=== PATIENT | female | born 1965 | race Caucasian/White ===

== ENCOUNTER 2017-04-08 09:06 | Emergency (ER) | payer OTHER ==
[2017-04-08 09:54] VITALS: BP 155/91
[2017-04-08] MEDS ORDERED: Albuterol HFA INHALER* 8 gm MDI INH ONE (10:04)
--- NOTE | 2017-04-08 10:05 | UC ---
Respiratory Complaint HPI - HPI Summary HPI Summary: 51 yo female with a one week hx of low grade temp/runny nose and post nasal drip now feeling worse with upper dental pain/sensitivity and wheezing out of MDI - History of Current Complaint Chief Complaint: UCRespiratory Stated Complaint: FLU SXS,ASTHMA Time Seen by Provider: 04/08/17 09:52 Hx Obtained From: Patient Hx Last Menstrual Period: n/a Onset/Duration: Gradual Onset, Lasting Days - 7 Timing: Constant Severity Initially: Mild Severity Currently: Moderate Pain Intensity: 4 Pain Scale Used: 0-10 Numeric Character: Cough: Nonproductive Aggravating Factors: Nothing Alleviating Factors: Nothing Associated Signs And Symptoms: Positive: Wheezing, Nasal Congestion, Hoarseness , Sinus Discomfort Related History: Similar Episode/Dx as: - sinusitis - Allergies/Home Medications Allergies/Adverse Reactions: Allergies Allergy/AdvReac Type Severity Reaction Status Date / Time environmental Allergy Congestion Uncoded 04/08/17 09:55 Home Medications: Home Medications [place] 1 liq PO BEDTIME PRN 04/08/17 [History] Pantoprazole Sodium [Protonix] 20 mg PO DAILY 04/08/17 [History Confirmed ] PMH/Surg Hx/FS Hx/Imm Hx Previously Healthy: Yes Respiratory History: Asthma, Bronchitis - Surgical History Surgical History: Yes Surgery Procedure, Year, and Place: foot neuroma removal 2008 - Family History Known Family History: Positive: Hypertension - Social History Alcohol Use: Occasionally Substance Use Type: None Smoking Status (MU): Never Smoked Tobacco Review of Systems Constitutional: Fatigue Skin: Negative Eyes: Negative ENT: Dental Pain, Nasal Discharge, Sinus Congestion, Sinus Pain/Tenderness Respiratory: Cough Cardiovascular: Negative Gastrointestinal: Negative Genitourinary: Negative Motor: Negative Neurovascular: Negative Musculoskeletal: Negative Neurological: Negative Psychological: Negative Is Patient Immunocompromised?: No All Other Systems Reviewed And Are Negative: Yes Physical Exam Triage Information Reviewed: Yes Appearance: Well-Appearing, No Pain Distress, Well-Nourished Vital Signs: Initial Vital Signs Temp 100.2 F 04/08/17 09:47 Pulse 76 04/08/17 09:47 Resp 18 04/08/17 09:47 BP 155/91 04/08/17 09:47 Pulse Ox 98 04/08/17 09:47 Vital Signs Reviewed: Yes Eyes: Positive: Conjunctiva Clear ENT: Positive: Hearing grossly normal, Pharynx normal, Nasal congestion, Nasal drainage, TMs normal, Sinus tenderness, Uvula midline. Negative: Trismus, Muffled voice, Hoarse voice Dental Exam: Normal Neck: Positive: Supple, Nontender, No Lymphadenopathy Respiratory: Positive: Lungs clear, No respiratory distress, No accessory muscle use, Wheezing - wioth forced expiration Cardiovascular Exam: Normal Cardiovascular: Positive: RRR Abdominal Exam: Normal Musculoskeletal: Positive: Strength Intact, ROM Intact Neurological: Positive: Alert Psychological Exam: Normal Skin Exam: Normal UC Diagnostic Evaluation - Laboratory O2 Sat by Pulse Oximetry: 98 - normal/not hypoxic Respiratory Course/Dx - Differential Dx/Diagnosis Provider Diagnoses: acute sinusitis. bronchitis with bronchospasm Discharge - Discharge Plan Condition: Stable Disposition: HOME Patient Education Materials: Sinusitis (ED), Acute Bronchitis (ED) Referrals: Marquise Vick MD [Primary Care Provider] - 4 Days (if nto better) Additional Instructions: use inhaler as directed plain mucinex or robitussin
== END 2017-04-08 10:27 | disposition home or self-care (01) ==
LOC: UCCORT 09:06
DX: J01.90 Acute sinusitis, unspecified (principal); J20.9 Acute bronchitis, unspecified; J45.909 Unspecified asthma, uncomplicated
CPT/HCPCS: 99213; A9270-GY; G0463

== ENCOUNTER → 2019-01-28 10:32 | Day surgery (SDC) | payer OTHER ==
--- NOTE | 2019-01-26 15:59 | HP ---
PREOPERATIVE HISTORY AND PHYSICAL: DATE OF ADMISSION: 01/28/19 PHYSICIAN: Marianna Wilde MD * (DICTATED BY TERRY FENG) CHIEF COMPLAINT: Right elbow pain. HISTORY OF PRESENT ILLNESS: This is a 53-year-old female who has had ongoing problems with the right elbow since May of 2018. She denies any specific injury but did work in her garden a lot with weight lifting and utilizing her muscle lot at work. She was followed by her primary care who diagnosed her with lateral epicondylitis. She has under-gone 2 cortisone injections without relief and also attends physical therapy. She has worn a counterforce brace and used meloxicam without relief and MRI confirmed lateral epicondylitis. Therefore, she is seeking surgical intervention with Dr. Wilde. PAST MEDICAL HISTORY: Significant for asthma, GERD, anemia and depression. PAST SURGICAL HISTORY: Neuroma excision in 2001 without anesthetic complications. CURRENT MEDICATIONS: 1. Protonix. 2. Calcium 600 plus D. 3. High protein C. 4. Valacyclovir 500 mg 1 tab by mouth daily. 5. Vitamin D 25 mcg (1000 units) 1 tab by mouth daily. 6. Probiotic 1 tab by mouth daily. ALLERGIES: None. FAMILY HISTORY: Significant for diabetes, heart disease, and cancer. SOCIAL HISTORY: She lives with her spouse. She denies tobacco or recreational drug use and consumes 3 alcoholic beverages per week. She does exercise on a regular basis. REVIEW OF SYSTEMS: A 14 systems are reviewed with the patient and are positive for easy bleeding and bruising, seasonal allergies, and hay fever. Otherwise, all other systems are negative. PHYSICAL EXAMINATION GENERAL: She is a well-developed, well-nourished female seated on exam table in no acute distress with appropriate affect. VITAL SIGNS: Height 63 inches, weight 120, blood pressure 122/80, pulse of 68. HEENT: Normocephalic, atraumatic. Hearing and vision are grossly intact with extraocular movements intact. NECK: The trachea is midline and symmetrical. CHEST: Lungs are clear to auscultation. No wheezes, rales, or rhonchi are noted. CARDIO: Regular rate and rhythm. Normal S1, S2. No murmurs, rubs, or gallops appreciated. ABDOMEN: Nondistended, nontender. Bowel sounds present. MUSCULOSKELETAL: Right upper extremity: Skin is dry and intact with some pigment change from where the cortisone injections occurred. There is no visible swelling. She has exquisite tenderness to palpation of the lateral epicondyle and down to the musculature of forearm. She has full range of the elbow with minimal pain but does have pain to extensor wrist and supination forearm against resistance. She also has pain when she squeezes my hand with her elbow in a fully extended position. Sensation is intact to light touch with a 2+ radial pulse. IMPRESSION: Right elbow lateral epicondylitis. PLAN: Right elbow lateral release with Dr. Marianna Wilde. The patient's questions were answered and she would like to proceed. She will follow up postoperatively and call with questions or concerns otherwise. TERRY FENG [id number]/[facility] #: [id number] KIANA
[~2019-01-28 10:32] MED LIST: Buffered Lidocaine 1% SYRIN* 1 ML/SYRINGE INTRADERM ONE; Bupivacaine 0.25% SDV* 30 ML ONE; Bupivacaine 0.5% SDV PF* 30ML VIAL ONE; Dexamethasone IV* 4 MG/ML 1 ML (4 MG) IV SLOW PU ONE; Dexamethasone IV* 4 MG/ML 1 ML (4 MG) ONE; DiMENhydriNATE IV* 50 MG/ML VIAL IV PUSH PRN; Famotidine IV* 10 MG/ML 2 ML (20 mg) IV ONE; Famotidine IV* 10 MG/ML 2 ML (20 mg) ONE; HYDROcodone/ACETAMIN 5-325 MG* 1 TAB PO PRN; Ketorolac INJ* 30 MG/ML 1 ML VIAL IV PRN; Ketorolac INJ* 30 MG/ML 1 ML VIAL ONE; Lactated Ringers 1000 ML Bag* 1,000 ML IV SCH; Lidocaine 2% PF * 5 ML VIAL ONE; Midazolam* 1 MG/ML 2 ML VIAL (2 MG) ONE; Naloxone* 0.4 MG/ML 1 ML VIAL IV PRN; Ondansetron INJ* 2 MG/ML VIAL ONE; Propofol* 10 MG/ML 20 ML BTL ONE; ceFAZolin 2 GM PREMIX in ORs 2 GM/50 ML BAG ONE; fentaNYL* 50 MCG/ML 2 ML VIAL (100 MCG VIAL) IV PRN; fentaNYL* 50 MCG/ML 2 ML VIAL (100 MCG VIAL) ONE; oxyCODONE/Acetamin 5/325 MG* TAB ONE; oxyCODONE/Acetamin 5/325 MG* TAB PO PRN
[2019-01-28 14:16] VITALS: BP 138/74
--- NOTE | 2019-01-28 14:26 | OP ---
DATE OF OPERATION: 01/28/19 [facility] DATE OF : 63 SURGEON: Marianna Wilde MD STEREOTYPE CASTER: TERRY Woods ANESTHESIA: General. PRE-OP DIAGNOSIS: Right lateral epicondylitis. POST-OP DIAGNOSIS: Right lateral epicondylitis. OPERATIVE PROCEDURE: Right lateral elbow release. ESTIMATED BLOOD LOSS: Zero. TOURNIQUET TIME: About 25 minutes. INDICATIONS FOR PROCEDURE: Cally is a 53-year-old woman with painful and persistent epicondylitis lateral of the right elbow. She has failed conservative treatment and presents for lateral release on the right elbow. DESCRIPTION OF PROCEDURE: The patient was brought to the operating room, was given a general anesthetic and placed in the supine position on the operating table with a tourniquet around her right upper arm. The skin of her right upper extremity was prepped and draped in the usual sterile fashion. The hand and forearm were exsanguinated and the tourniquet elevated to 250 mmHg. A lateral longitudinal incision was made centered at the lateral epicondyle and we dissected down to the extensor supinator origin. This was incised with a distally based U-shaped flap, which was then subperiosteally dissected off of the lateral epicondyle. There was a significant amount of edematous tissue. The degenerated tissue was debrided and sent for pathology. The wound was copiously irrigated with saline. The extensor supinator origin was then repaired in interrupted fashion and lengthened fashion with a #1 Vicryl suture and this was done after debriding the bone of the lateral epicondyle. The wound was again irrigated with saline, subcutaneous tissue closed with 3-0 Vicryl and the skin with skin prosper. The patient tolerated the procedure well and she was brought to the recovery room in good condition after awakening from general anesthesia and after the tourniquet was released. [id number]/[facility] #: [id number] MTDShlomo
== END | disposition home or self-care (01) ==
LOC: OREAST 10:32
PROVIDERS: ATTEND Orthopaedic Surgery
DX: M77.11 Lateral epicondylitis, right elbow (principal); J45.909 Unspecified asthma, uncomplicated; K21.9 Gastro-esophageal reflux disease without esophagitis
CPT/HCPCS: 88304; 88311; A9270-GY; J0690; J1100; J1885; J2250; J2405; J2704; J3010; J3490

== ENCOUNTER 2019-05-17 12:18 | Emergency (ER) | payer OTHER ==
--- OUTSIDE RECORDS SUMMARY | 2019-05-17 14:03 | XMS REPORT | Continuity of Care Document ---
:1965 External Reference #:[id number] Author Name Chantale YOSI Donis (transmitted by agent of provider Sweta Rhodes) Address [address] [place] [address] Problems Active Problems Provider Date Allergic rhinitis due to pollen Sweta Rhodes M.D. Onset: 04/19/2018 Allergic rhinitis due to animals Sweta Rhodes M.D. Onset: 04/19/2018 Allergic rhinitis David Coe M.D. Onset: 01/18/2017 Social History Type Date Description Comments Sex Unknown ETOH Use Occasionally consumes alcohol Tobacco Use Start: Unknown Patient has never smoked Recreational Drug Use Denies Drug Use Allergies, Adverse Reactions, Alerts Description No Known Drug Allergies Medications Active Medications SIG Qnty Indications Ordering Provider Date Pantoprazole Sodium once a day. Unknown 40mg Tablets Valacyclovir HCL twice a day. Unknown 500mg Tablets Calcium 1000 + D once a day. Unknown [id number]-Epum Tablets Iron High-Potency once a day. Unknown 325mg Tablets Vitamin D 1 by mouth every Unknown 1000Unit Tablets day Probiotic daily Unknown Tablets Immunizations CPT Code Status Date Vaccine Lot # [id number] Given 12/24/2012 Influenza Vaccine 04884 Given Unknown Influenza Vaccine 66106 Given Unknown Influenza Vaccine Vital Signs Date Vital Result Comment 04/25/2019 8:40am Height 63 inches 5'3" Weight 128.00 lb Weight 58.061 kg Respiratory Rate 16 /min Heart Rate 65 /min O2 % BldC Oximetry 97 % BP Systolic 111 mmHg BP Diastolic 69 mmHg BMI (Body Mass Index) 22.7 kg/m2 04/25/2018 11:12am Height 63 inches 5'3" Weight 138.00 lb Weight 62.597 kg Respiratory Rate 21 /min Heart Rate 71 /min O2 % BldC Oximetry 98 % BP Systolic 149 mmHg BP Diastolic 84 mmHg BMI (Body Mass Index) 24.4 kg/m2 Results Description No Information Available Procedures Date Code Description Status 03/24/2019 72264 Extract 1-10 Completed Medical Devices Description No Information Available Encounters Type Date Location Provider Dx Diagnosis Office Visit 04/25/2019 [place] Chantale Donis J30.1 Allergic rhinitis due 8:40a COMPOUND SPECIALIST-C to pollen J30.2 Other seasonal allergic rhinitis J30.81 Allergic rhinitis due to animal (cat) (dog) hair and dander J30.89 Other allergic rhinitis Assessments Date Code Description Provider 04/25/2019 J30.1 Allergic rhinitis due to pollen Chantale Donis COMPOUND SPECIALIST-C 04/25/2019 J30.2 Other seasonal allergic rhinitis Chantaledanny Donis COMPOUND SPECIALIST-C 04/25/2019 J30.81 Allergic rhinitis due to animal (cat) (dog) Chantale Donis COMP[facility] SPECIALIST-C hair and dander 04/25/2019 J30.89 Other allergic rhinitis Chantaledanny Donis, COMPOUND SPECIALIST-C 03/24/2019 J30.1 Allergic rhinitis due to pollen Sweta Rhodes M.D. 03/24/2019 J30.1 Allergic rhinitis due to pollen Lab 03/24/2019 J30.2 Other seasonal allergic rhinitis Sweta Rhodse M.D. 03/24/2019 J30.2 Other seasonal allergic rhinitis Lab 03/24/2019 J30.81 Allergic rhinitis due to animal (cat) (dog) Sweta Rhodes M.D. hair and dander 03/24/2019 J30.81 Allergic rhinitis due to animal (cat) (dog) Lab hair and dander 03/24/2019 J30.89 Other allergic rhinitis Sweta Rhodes M.D. 03/24/2019 J30.89 Other allergic rhinitis Lab Plan of Treatment Future Appointment(s):04/30/2020 8:40 am - MARC [facility]P-C at [email or web address] - Chantale Joshuasilvia, LUIS ENRIQUE-CJ30.1 Allergic rhinitis due to fdvhsvM17.2 Other seasonal allergic ialeyjnfE16.81 Allergic rhinitis due to animal (cat) ( dog) hair and wthkysB05.89 Other allergic rhinitisFollow up:1 yearRecommendations:Continue all medications as prescribed.Refrain from wearing perfumes/scented colognes while visitingour office. Continue the Carol 1 daily as needed Continue the IT as tolerated Functional Status Description No Information Available Mental Status Description No Information Available Referrals Description No Information Available
--- OUTSIDE RECORDS SUMMARY | 2019-05-17 14:03 | XMS REPORT | Continuity of Care Document ---
:1965 External Reference #:[id number] Author Name Marianna Siddiqi M.D. (transmitted by agent of provider Johanna Villatoro) Address [address] [place] [address] [place] [address] Care Team Providers Name Role Phone Marquise Vick MD - Family Medicine Care Team Information Internal Medicine Specialist Problems Description No Information Available Social History Type Date Description Comments Sex Unknown ETOH Use Drinks 3 Alcoholic Beverages Per Week Tobacco Use Start: Unknown Patient has never smoked Smoking Status Reviewed: 04/24/19 Patient has never smoked Exercise Type/Frequency Exercises regularly Allergies, Adverse Reactions, Alerts Description No Known Drug Allergies Medications Active Medications SIG Qnty Indications Ordering Provider Date Protonix Unknown Calcium 600+D High Unknown Potency Valacyclovir HCL 1 by mouth every Unknown 500mg day Tablets Vitamin D 1 by mouth every Unknown (Cholecalciferol) day 25mcg (1000 Ut) Tablets Probiotic 1 by mouth every Unknown Capsules day Iron Unknown History Medications Oxycodone-Acetaminophen 1 tab by 15tabs Marianna 01/28/2019 - 5-325mg Tablets mouth amy Siddiqi M.D. 03/05/2019 4-6 hours as needed pain Immunizations Description No Information Available Vital Signs Date Vital Result Comment 04/24/2019 8:15am Height 63 inches 5'3" Weight 122.00 lb Heart Rate 68 /min BP Systolic 112 mmHg BP Diastolic 74 mmHg Respiratory Rate 18 /min Pain Level 2 O2 % BldC Oximetry 98 % BMI (Body Mass Index) 21.6 kg/m2 03/06/2019 9:02am Height 63 inches 5'3" Weight 122.00 lb Heart Rate 72 /min Respiratory Rate 12 /min Body Temperature 95.8 F Pain Level 4 BMI (Body Mass Index) 21.6 kg/m2 Results Test Acquired Date Facility Test Result H/L Range Note Surgical 01/28/2019 [facility] Surgical SEE RESULT 1, [address] Pathology BELOW [place] [id number] [phone] PDFReport SEE IMAGE 1 [id number] 2 SEE RESULT BELOW Name: CALLY MENDOZA : [address]: Marianna Wilde MD Acct: [id number] Unit: [id number] AGE: 53 Location: [facility] Re01/28/19 SEX: F Status: [facility] SPEC: [id number] JESENIA: 01/28/19-[address] [facility] DR: Marianna Wilde MD REQ: [id number] RECD: 01/28/19 STATUS: VERN _ ORDERED: Pancho, LEVEL 3 COMMENTS: [id number] FINAL DIAGNOSIS Elbow, right, lateral epicondyle, excision: -- Benign bone, cartilage, and synovial tissue with reactive change and fibrosis. PRE-OPERATIVE DIAGNOSIS Right elbow lateral epicondylitis GROSS DESCRIPTION The specimen is received in formalin labeled, Right Lateral Epicondylitis, and consists of a 1.5 x 1.5 by up to 0.5 cm aggregate of ortiz-pink irregular bone fragments which is submitted entirely in one cassette following decalcification. Signed by and Reported on: Maribell Fregoso MD 01/30/192042 END OF REPORT DEPARTMENT OF PATHOLOGY, [address] [place] [address] Roberto Quiroz M.D. Director [facility] # [id number] Procedures Date Code Description Status 01/28/2019 49901 Tenotomy Elbow Debridement W/Tendon Repair Or Completed Reattachement 01/28/2019 29091 Tenotomy Elbow Debridement W/Tendon Repair Or Completed Reattachement Medical Devices Description No Information Available Encounters Type Date Location Provider Dx Diagnosis Office Visit 01/23/2019 [facility] Danii Worthy Lateral 2:45p at [place] [facility] epicondylitis, right elbow Office Visit 01/13/2019 [facility], [facility] Assessments Date Code Description Provider 03/06/2019 [facility] Lateral epicondylitis, right elbow Marianna Siddiqi M.D. 03/06/2019 Z47.89 Encounter for other orthopedic aftercare Marianna Siddiqi M.D. 02/06/2019 [facility] Lateral epicondylitis, right elbow IVANA Woods 02/06/2019 Z48.02 Encounter for removal of sutures IVANA Woods 01/28/2019 [facility] Lateral epicondylitis, right elbow IVANA Woods 01/28/2019 [facility] Lateral epicondylitis, right elbow Marianna Siddiqi M.D. 01/23/2019 MTien.11 Lateral epicondylitis, right elbow Marianna Siddiqi M.D. 01/13/2019 M77.11 Lateral epicondylitis, right elbow Essence Mendez, FADI-C Plan of Treatment Future Appointment(s):09/30/2019 8:00 am - Hyacinth Blackburn MD at [facility] Functional Status Description No Information Available Mental Status Description No Information Available Referrals Description No Information Available
[2019-05-17 14:12] VITALS: BP 143/76
--- NOTE | 2019-05-17 14:36 | UC ---
Complaint Female HPI - HPI Summary HPI Summary: 53-year-old female who has had urinary frequency and dysuria since last evening. She denies any fever or chills. She has no history of urinary tract infections. - History Of Current Complaint Chief Complaint: UCGU Stated Complaint: URINARY Time Seen by Provider: 05/17/19 14:02 Hx Obtained From: Patient Hx Last Menstrual Period: n/a ?: No Onset/Duration: Gradual Onset, Still Present Timing: Intermittent Severity Initially: Mild Severity Currently: Mild Pain Intensity: 1 Character: Burning Aggravating Factor(s): Urination Alleviating Factor(s): Nothing Associated Signs And Symptoms: Positive: Negative - Allergies/Home Medications Allergies/Adverse Reactions: Allergies Allergy/AdvReac Type Severity Reaction Status Date / Time environmental Allergy Congestion Uncoded 05/17/19 14:12 Home Medications: Home Medications Acyclovir* [Zovirax TAB*] 500 mg PO BID 09/21/12 [History Confirmed 05/17/19] Calcium Carbonate/Vitamin D3 [Calcium 600 + Vit D Tablet] 2 each PO QAM [History Confirmed 05/17/19] L.acidoph,Paracasei, B.lactis [Probiotic] 1 each PO QAM 01/27/19 [History Confirmed 05/17/19] Pantoprazole TAB (NF) [Protonix TAB (NF)] 20 mg PO QAM 01/27/19 [History Confirmed 05/17/19] Conjugated Estrogens VAG CM* [Premarin VAG CREAM*] 1 applic VAGINAL WEEKLY 05/17 [History Confirmed 05/17/19] Iron 18 mg PO DAILY 05/17/19 [History Confirmed 05/17/19] Phenazopyridine TAB* [Pyridium 100 mg TAB*] 100 mg PO TID PRN 3 Days #9 tab [Rx] Sulfamethox/Trimethoprim DS* [Bactrim DS 800/160 TAB*] 1 tab PO BID 5 Days #10 tab 05/17/19 [Rx] PMH/Surg Hx/FS Hx/Imm Hx Previously Healthy: Yes - Surgical History Surgical History: Yes Surgery Procedure, Year, and Place: foot neuroma removal 2008, right elbow 2018 - Family History Known Family History: Positive: Hypertension - Social History Lives: With Family Alcohol Use: Daily Alcohol Amount: 10 [place] BEER DAILY Substance Use Type: None Smoking Status (MU): Never Smoked Tobacco Have You Smoked in the Last Year: No Review of Systems All Other Systems Reviewed And Are Negative: Yes Genitourinary: Positive: Dysuria, Frequency, Urgency Is Patient Immunocompromised?: No Physical Exam Triage Information Reviewed: Yes Appearance: Well-Appearing, No Pain Distress, Well-Nourished Vital Signs: Initial Vital Signs Temp 98.3 F 05/17/19 14:06 Pulse 78 05/17/19 14:06 Resp 16 05/17/19 14:06 BP 143/76 05/17/19 14:06 Pulse Ox 99 05/17/19 14:06 Vital Signs Reviewed: Yes Respiratory: Positive: Lungs clear, Normal breath sounds, No respiratory distress, No accessory muscle use Cardiovascular: Positive: RRR, No Murmur, Pulses Normal, Brisk Capillary Refill Abdomen Description: Positive: Nontender, No Organomegaly, Soft. Negative: CVA Tenderness (R), Distended, Guarding, Hepatomegaly, Splenomegaly Bowel Sounds: Positive: Present Musculoskeletal Exam: Normal Neurological Exam: Normal Psychological Exam: Normal Skin Exam: Normal Complaint Female Dx - Course Course Of Treatment: Urinalysis: Positive for leukocytes and nitrates. Patient is comfortable here and in no distress. She has an appointment with her primary care provider next site advised her to have her urine rechecked to make sure the urinary tract infection has cleared. - Differential Dx/Diagnosis Provider Diagnosis: UTI (urinary tract infection) Discharge ED - Sign-Out/Discharge Documenting (check all that apply): Patient Departure All imaging exams completed and their final reports reviewed: No Studies - Discharge Plan Condition: Good Disposition: HOME Prescriptions: Phenazopyridine TAB* [Pyridium 100 mg TAB*] 100 mg PO TID PRN 3 Days #9 tab PRN Reason: Spasms Sulfamethox/Trimethoprim DS* [Bactrim DS 800/160 TAB*] 1 tab PO BID 5 Days #10 tab Patient Education Materials: Urinary Tract Infection in Women (DC) Referrals: Marquise Vick MD [Primary Care Provider] - Additional Instructions: Increase fluids, take the Bactrim with food. Follow-up in the emergency room if you develop fever, chills, back pain, unable to keep the medication down. Keep your appointment with your primary care provider next and have your urine rechecked. - Billing Disposition and Condition Condition: GOOD Disposition: Home
== END 2019-05-17 14:50 | disposition home or self-care (01) ==
LOC: UCCORT 12:18
DX: N39.0 Urinary tract infection, site not specified (principal); Z91.09 Other allergy status, other than to drugs and biological substances
CPT/HCPCS: 81003; 87077; 87086; 87186; 99212; G0463